=== PATIENT | female | born 1985 | race Caucasian/White ===

== ENCOUNTER 2016-07-22 00:25 | Emergency (ER) | payer OTHER ==
[~2016-07-22] VITALS: Ht 170.2 cm; Wt 68.0 kg
[2016-07-22 00:52] LABS: *BILIRUBIN,URIN NEGATIVE (NEGATIVE); *BLOOD, URINE 2+ (NEGATIVE); *CLARITY,URINE SLIGHTLY CLOUDY (CLEAR); *COLOR,URINE YELLOW (YELLOW); *KETONES,URINE 1+ (NEGATIVE); *PROTEIN,URINE 2+ (NEGATIVE); *UROBILINOGEN,URINE 0.2 E.U./dl (NORMAL); LEUKOCYTE ESTERASE ,URINE 1+ (NEGATIVE); NITRITE, URINE NEGATIVE (NEGATIVE); PH,URINE 5.5 (5.0-8.0); UGLUCOSE NEGATIVE (NEGATIVE)
[2016-07-22 00:56] LABS: *URINE HCG, QUAL NEGATIVE (NEGATIVE); BACTERIA,URINE MODERATE /HPF (NONE SEEN); RBC,URINE TNTC /HPF (0-3); SQUAMOUS EPITHELIAL CELL,UR FEW /HPF (NONE SEEN); WBC,URINE 80-100 /HPF (0-3)
[2016-07-22] MEDS ORDERED: ONDANSETRON ODT 4 MG TAB.RAPDIS SL ONE (01:00)
[2016-07-22] MEDS ORDERED: IBUPROFEN 400 MG TABLET PO ONE (01:00)
[2016-07-22] MEDS ORDERED: ONDANSETRON ODT 4 MG TAB.RAPDIS ONE (01:03)
[2016-07-22] MEDS ORDERED: IBUPROFEN 400 MG TABLET ONE (01:03)
[2016-07-22] MEDS ORDERED: NITROFURANTOIN/NITROFURAN MAC 100 MG CAPSULE PO ONE (01:15)
[2016-07-22] MEDS ORDERED: CEFTRIAXONE 1 G VIAL IM ONE (01:15)
[2016-07-22] MEDS ORDERED: CEFTRIAXONE 1 G VIAL ONE (01:28)
[2016-07-22] MEDS ORDERED: NITROFURANTOIN/NITROFURAN MAC 100 MG CAPSULE ONE (01:28)
[2016-07-22] MEDS ORDERED: LIDOCAINE HCL 1% 20 ML VIAL ONE (01:28)
[2016-07-22 01:34] VITALS: BP 108/78
--- NOTE | 2016-07-22 01:34 | NUR ---
Patient discharged to home in stable conditon. Written and verbal after care instructions given. Patient verbalizes understanding of instructions. WALKED OUT OF ER WITH STEADY GAIT
== END 2016-07-22 01:36 | disposition home or self-care (01) ==
LOC: ER 00:36
DX: N12 Tubulo-interstitial nephritis, not specified as acute or chronic (principal)
CPT/HCPCS: 84703; 87077; 87086; A4663; J0696; J3490; Q0162

== ENCOUNTER 2021-01-06 15:54 | Emergency (ER) | payer OTHER ==
[~2021-01-06] VITALS: Ht 170.2 cm; Wt 519.4 kg
[2021-01-06] MEDS ORDERED: KETOROLAC TROMETHAMINE 15 MG INJ IM ONE (16:00)
[2021-01-06 16:31] LABS: HEMATOCRIT 39.7 % (31.2-41.9); MEAN CORPUSCULAR HEMOGLOBIN 31.8 uug (24.7-32.8); MEAN CORPUSCULAR VOLUME 95.3 fL (75.5-95.3); PLATELET COUNT (AUTO) 208 K/uL (179-408)
[2021-01-06 16:38] LABS: CREATININE 0.7 mg/dL (0.6-1.3); POTASSIUM 3.5 mmol/L (3.5-5.1)
[2021-01-06 16:44] LABS: BILIRUBIN,TOTAL 0.4 mg/dL (0.2-1.0); TOTAL PROTEIN, SERUM 7.4 g/dL (6.4-8.2)
--- NOTE | 2021-01-06 17:05 | NUR ---
lapd here to interview pt.
--- NOTE | 2021-01-06 17:05 | NUR ---
to ct scan via [facility]
[2021-01-06] MEDS ORDERED: KETOROLAC TROMETHAMINE 15 MG INJ ONE (17:27)
--- NOTE | 2021-01-06 17:33 | NUR ---
medicated for pain as per md order. urine specimen to lab.
[2021-01-06 17:35] LABS: *BILIRUBIN,URIN NEGATIVE (NEGATIVE); *BLOOD, URINE NEGATIVE (NEGATIVE); *CLARITY,URINE CLEAR (CLEAR); *COLOR,URINE YELLOW (YELLOW); *KETONES,URINE TRACE (NEGATIVE); *URINE HCG, QUAL NEGATIVE (NEGATIVE); *UROBILINOGEN,URINE 0.2 E.U./dl (NORMAL); LEUKOCYTE ESTERASE ,URINE NEGATIVE (NEGATIVE); NITRITE, URINE NEGATIVE (NEGATIVE); PH,URINE 5.5 (5.0-8.0); UGLUCOSE NEGATIVE (NEGATIVE)
[2021-01-06] MEDS ORDERED: HYDROCODONE/APAP 5-325MG TABLET PO ONE (18:45)
--- NOTE | 2021-01-06 18:57 | NUR ---
medicated for pain. dr ley at bedside for explanation of test results. to radiology via wheelchair.
[2021-01-06] MEDS ORDERED: HYDROCODONE/APAP 5-325MG TABLET ONE (19:01)
[2021-01-06] MEDS ORDERED: ONDA4TAB5 GT ×2 (20:05→20:31)
[2021-01-06] MEDS ORDERED: HYDR4TAB4 PO (20:05)
[2021-01-06] MEDS ORDERED: OXYC-128 PO (20:31)
[2021-01-06 20:53] VITALS: BP 110/69
--- NOTE | 2021-01-06 20:53 | NUR ---
Patient discharged to home in stable condition with taking patient home. Written and verbal after care instructions given. Patient verbalizes understanding of instructions. Stressed follow up or return to ER for worsening s/s.
== END 2021-01-06 20:54 | disposition home or self-care (01) ==
LOC: ER 15:57
DX: M54.2 Cervicalgia (principal); M25.512 Pain in left shoulder; M54.50 Low back pain, unspecified; S40.212A Abrasion of left shoulder, initial encounter; V43.52XA Car driver injured in collision with other type car in traffic accident, initial encounter; Y92.414 Local residential or business street as the place of occurrence of the external cause
CPT/HCPCS: 36415; 71045; 72125; 72131; 72220; 73030; 80053; 81003; 84703; 85025; 96372; 99285; J1885; A4663